=== PATIENT | female | born 1990 | race Caucasian/White ===

== ENCOUNTER 2019-06-30 20:44 | Emergency (ER) | payer OTHER ==
[2019-06-30 20:47] VITALS: BP 133/83; PULSE 95; RESP 20; TEMP 98.9
[2019-06-30] MEDS ORDERED: LIDOCAINE 5% PATCH TOPICAL STA (20:53)
[2019-06-30] MEDS ORDERED: KETOROLAC 30 MG/ML 1 ML VIAL IM STA (20:53)
[2019-06-30] MEDS ORDERED: DIAZEPAM 5 MG TAB PO STA (20:53)
--- NOTE | 2019-06-30 21:02 | ED ---
Upper Extremity HPI - General Chief Complaint: Extremity Injury, Upper Stated Complaint: shoulder pain/fingers tingling Time Seen by Provider: 06/30/19 20:50 Source: patient Mode of arrival: ambulatory Limitations: no limitations - History of Present Illness Initial Comments: 29-year-old female patient presents to the emergency department today for evalu ation of right shoulder pain. Patient states that the shoulder started bothering her 4 days ago. States 3 days ago she did lift a heavy table saw with her significant other which causes her pain to worsen. States the pain is radiating down into her right upper back around her shoulder blade. Patient states she has been taking Motrin. Symptoms but is not helping. States she is not having tingling in her thumb and index finger. Denies any history of injury or pain to the shoulder. Patient states she did try to apply capsaicin cream but it burned her skin. She denies any chest pain or shortness of breath. Denies any dizziness or weakness. Patient denies any headache, abdominal pain, nausea, vomiting, or difficulties with bowel movements or urination. - Related Data Previous Rx's Medication Instructions Recorded Cyclobenzaprine [Flexeril] 10 mg PO TID #15 tab 06/30/19 Naproxen [EC-Naprosyn] 500 mg PO BID PRN #30 tablet. 06/30/19 Allergies Allergy/AdvReac Type Severity Reaction Status Date / Time No Known Allergies Allergy Verified 06/30/19 20:47 Review of Systems ROS Statement: Those systems with pertinent positive or pertinent negative responses have been documented in the HPI. ROS Other: All systems not noted in ROS Statement are negative. Past Medical History Additional Past Medical History / Comment(s): migraine History of Any Multi-Drug Resistant Organisms: None Reported Past Surgical History: No Surgical Hx Reported Past Psychological History: No Psychological Hx Reported Smoking Status: Current every day smoker Past Alcohol Use History: None Reported Past Drug Use History: None Reported General Exam Limitations: no limitations General appearance: alert, in no apparent distress, other (This is a well- developed, well-nourished, nontoxic-appearing adult female patient in no acute distress. Vital signs upon presentation are temperature 98.9F, pulse 95, respirations 20, blood pressure 133/83, pulse ox 98% on room air.) Eye exam: Present: normal appearance, PERRL, EOMI. Absent: scleral icterus, conjunctival injection, periorbital swelling ENT exam: Present: normal exam, normal oropharynx, mucous membranes moist Respiratory exam: Present: normal lung sounds bilaterally. Absent: respiratory distress, wheezes, rales, rhonchi, stridor Cardiovascular Exam: Present: regular rate, normal rhythm, normal heart sounds. Absent: systolic murmur, diastolic murmur, rubs, gallop, clicks Extremities exam: Present: normal inspection, tenderness (Tenderness over the right upper trapezius muscle and the muscles surrounding the right scapula.), normal capillary refill, other (There is a patch of skin to the right posterior shoulder that is erythematous and tender. Skin to the right arm is otherwise pink, warm, dry. Cap refills less than 3 seconds. Radial pulses are 2+ and equal bilaterally.). Absent: full ROM (Decreased range of motion due to increased pain with movement.), pedal edema, joint swelling, calf tenderness Neurological exam: Present: alert, oriented X3, CN II-XII intact Psychiatric exam: Present: normal affect, normal mood Skin exam: Present: warm, dry, intact, normal color. Absent: rash Course Vital Signs 06/30/19 20:45 Temperature 98.9 F Pulse Rate 95 Respiratory 20 Rate Blood Pressure 133/83 O2 Sat by Pulse 98 Oximetry Medical Decision Making - Medical Decision Making 29-year-old female patient presents to the emergency department today for evaluation of right shoulder pain and right upper back discomfort. Physical examination reveals tenderness over the right upper trapezius muscle. Neurovascular status is intact to the right arm. X-ray of the right shoulder was obtained and was negative for any acute abnormalities. We did discuss muscle spasm as a cause for her symptoms. She'll be treated with anti- inflammatory, muscle relaxer, and a starter pack of Tylenol for codeine. She is instructed to follow up with rn documentation specialist for further evaluation for possible rotator cuff injury. Return parameters were discussed in detail. She verbalizes understanding and agrees this plan. - Radiology Data Radiology results: report reviewed, image reviewed Three-view x-ray of the right shoulder is obtained. Report reviewed in its entirety. Impression by Dr. Malika Leong shows no acute process. Disposition Clinical Impression: Muscle spasm of right shoulder Disposition: HOME SELF-CARE Condition: Good Instructions (If sedation given, give patient instructions): Muscle Spasm (ED), Shoulder Pain (ED) Additional Instructions: Take medications as directed. Follow-up with the rn documentation specialist for further evaluation. Return to the emergency department immediately for any new, worsening, or concerning symptoms. Prescriptions: Naproxen [EC-Naprosyn] 500 mg PO BID PRN #30 tablet.dr BURNETTE Reason: Pain Cyclobenzaprine [Flexeril] 10 mg PO TID #15 tab Is patient prescribed a controlled substance at d/c from ED?: No Referrals: Jose Jenkins DO [Primary Care Provider] - 1-2 days Mulugeta Alamo DO [Medical Doctor] - 1-2 days Time of Disposition: 22:05
--- NOTE | 2019-06-30 21:51 | XR ---
PROCEDURE: XR shoulder complete RT - 3V DATE AND TIME: 06/30/2019 9:10 PM CLINICAL INDICATION: [facility]; Shoulder injury - pain TECHNIQUE: Department protocol COMPARISON: None FINDINGS: There is no fracture or malalignment. The soft tissues are unremarkable. IMPRESSION: NO ACUTE PROCESS.
[2019-06-30] MEDS ORDERED: ACET/COD 300 MG/30 MG STARTER PACK 6 TAB BTL PO STA (22:05)
== END 2019-06-30 22:10 | disposition home or self-care (01) ==
LOC: EC 20:44
DX: M62.838 Other muscle spasm (principal); F17.200 Nicotine dependence, unspecified, uncomplicated
CPT/HCPCS: 73030; 99283; 96372; J1885

== ENCOUNTER 2020-06-21 06:37 | Emergency (ER) | payer OTHER ==
[2020-06-21 06:46] VITALS: BP 112/63; PULSE 87; RESP 18; TEMP 98.9
[2020-06-21] MEDS ORDERED: CYCLOBENZAPRINE 10MG STARTER 3 TAB BTL PO STA (06:58)
[2020-06-21] MEDS ORDERED: KETOROLAC 15 MG/ML 1 ML VIAL IM STA (06:59)
--- NOTE | 2020-06-21 07:01 | ED ---
Neck Injury/Pain HPI - General Chief Complaint: Neck Pain/Injury Stated Complaint: Neck Pain Time Seen by Provider: 06/21/20 06:52 Mode of arrival: ambulatory Limitations: no limitations - History of Present Illness Initial Comments: 30-year-old feel presented for 4 days of right-sided neck pain. Patient states she woke up with neck pain as though she slept on it wrong 4 days ago. She states he gets better during the day when she begins to move it but states when she wakes in the morning and hurts the worst. Patient states it's in a triangle region on the right side of the posterior neck. Patient states when she was a specific way she gets a jolt of pain. Patient does not endorse any fevers, injuries trauma weakness or sensation deficits of the upper extremities headache nausea vomiting visual changes. PT denies . no additional complaints. - Related Data Previous Rx's Medication Instructions Recorded Cyclobenzaprine [Flexeril] 10 mg PO TID #15 tab 06/30/19 Naproxen [EC-Naprosyn] 500 mg PO BID PRN #30 tablet. 06/30/19 Cyclobenzaprine [Flexeril] 10 mg PO TID PRN 4 Days #12 tab 06/21/20 Ibuprofen 600 mg PO Q8H PRN 7 Days #21 tab 06/21/20 Allergies Allergy/AdvReac Type Severity Reaction Status Date / Time No Known Allergies Allergy Verified 06/21/20 06:45 Review of Systems ROS Statement: Those systems with pertinent positive or pertinent negative responses have been documented in the HPI. ROS Other: All systems not noted in ROS Statement are negative. Past Medical History Additional Past Medical History / Comment(s): migraine History of Any Multi-Drug Resistant Organisms: None Reported Past Surgical History: No Surgical Hx Reported Past Psychological History: No Psychological Hx Reported Smoking Status: Current every day smoker Past Alcohol Use History: None Reported Past Drug Use History: None Reported General Exam - General Exam Comments Initial Comments: General: The patient is awake and alert, in no distress, and does not appear acutely ill. Eye: Pupils are equal, round and reactive to light, extra-ocular movements are intact. No nystagmus. There is normal conjunctiva bilaterally. No signs of icterus. Ears, nose, mouth and throat: There are moist mucous membranes and no oral lesions. Neck: The neck is supple, there is no tenderness or JVD. There is spasms and tightness appreciated to the right paraspinal, trapezius muscle. There is some point localized tenderness no midline tenderness. Can range with limitation seco ndary to pain when turning from left to right. Musculoskeletal: Normal ROM, no tenderness. Strength 5/5. Sensation intact. Pulses equal bilaterally 2+. Neurological: A&O x 3. CN II-XII intact, There are no obvious motor or sensory deficits. Coordination appears grossly intact. Speech is normal. Skin: Skin is warm and dry and no rashes or lesions are noted. Psychiatric: Cooperative, appropriate mood & affect, normal judgment. Limitations: no limitations Course Vital Signs 06/21/20 06:44 Temperature 98.9 F Pulse Rate 87 Respiratory 18 Rate Blood Pressure 112/63 O2 Sat by Pulse 98 Oximetry Medical Decision Making - Medical Decision Making No injury. neck pain after feeling like she slept on it wrong. patient has reproducible pain to palpation/movement on exam. Neurovascularly intact strength 5 out 5 of the upper extremities sensation intact. Patient has no fevers. History of PE findings appears consistent with a torticollis. explained symptomatic treatment to patient and patient will be discharged with NSAID and flexeril. Dr. Lowry agreeable to care plan. Disposition Clinical Impression: Neck muscle spasm, Spasmodic torticollis Disposition: HOME SELF-CARE Condition: Good Instructions (If sedation given, give patient instructions): Spasmodic Torticollis (ED) Additional Instructions: Please use medication as discussed. Please follow-up with family doctor in the next 2 days. Please return to emergency room if the symptoms increase or worsen or for any other concerns. Prescriptions: Cyclobenzaprine [Flexeril] 10 mg PO TID PRN 4 Days #12 tab PRN Reason: Muscle Spasm Ibuprofen 600 mg PO Q8H PRN 7 Days #21 tab PRN Reason: Pain Is patient prescribed a controlled substance at d/c from ED?: No Referrals: None,Stated [Primary Care Provider] - 1-2 days [facility] [NON-STAFF] - 1-2 days Time of Disposition: 07:01
== END 2020-06-21 07:12 | disposition home or self-care (01) ==
LOC: EC 06:37
DX: G24.3 Spasmodic torticollis (principal); M62.830 Muscle spasm of back; F17.200 Nicotine dependence, unspecified, uncomplicated
CPT/HCPCS: 99283; 96372; J1885